=== PATIENT | female | born 1940 | race Caucasian/White ===

== ENCOUNTER 2018-12-30 11:52 | Observation (INO) | payer MEDICARE, BC ==
[~2018-12-30] VITALS: Ht 160 cm; Wt 88.0 kg
--- NOTE | ~2018-12-30 | H ---
[address] [address] HISTORY AND PHYSICAL Name: PRAMOD PERDOMO Room: [address] Pawel M.RAneta#: [id number] Admission: 12/30/18 Attend Phys: Rolando Hernandez MD Discharge: 12/31/18 Date of : 36 Report #: [id number] THIS REPORT FOR: //name// Please refer to the History and Physical performed in the physician's office. By: [id number] Records Staff ROBERT /ERIN
[2018-12-30 13:13] LABS: HEMATOCRIT 37.6 % (37.0-47.0); HEMOGLOBIN 12.6 gm/dL (12.0-15.0); MCH 30.8 pg (26.0-34.0); MCHC 33.5 g/dL (28.0-37.0); MCV 91.9 fL (80.0-100.0); MPV 8.9 fl. (7.2-11.1); RBC 4.09 mil/uL (4.20-5.00); RDW-CV 14.3 % (10.5-14.5); WBC 7.7 thou/uL (4.0-11.0)
[2018-12-30 13:14] VITALS: BP 142/59
[2018-12-30 13:21] LABS: PROTIME 10.6 Seconds (9.20-11.50)
[2018-12-30 13:24] LABS: ALKALINE PHOSPHATASE 68 U/L (46-116); ANION GAP 7 mmol/L (7-16); BUN 9 mg/dL (7-18); CALCIUM 9.3 mg/dL (8.5-10.1); CHLORIDE 105 mmol/L (98-107); CHOLESTEROL 232 mg/dL (<200); CO2 27 mmol/L (21-32); CREATININE 1.1 mg/dL (0.6-1.3); GLUCOSE 122 mg/dL (70-99); HDL CHOLESTEROL 97 mg/dL (>40); LDL CHOLESTEROL 120 mg/dL (<100); SERUM ASSESSMENT Clear; SGOT 24 U/L (15-37); SGPT 33 U/L (30-65); SODIUM 139 mmol/L (136-145); TC:HDL 2.4 Ratio (Not establshd); TOTAL BILIRUBIN 0.4 mg/dL (<0.1-1.0); TOTAL PROTEIN 7.2 g/dL (6.4-8.2); TRIGLYCERIDE 75 mg/dL (<150); VLDL 15 mg/dL (<40)
[2018-12-30] MEDS ORDERED: AMITRIPTYLINE H10 M3 PO (14:07)
[2018-12-30] MEDS ORDERED: XANAX1 MG PO (14:07)
[2018-12-30] MEDS ORDERED: VITAMINC500 PO (14:07)
[2018-12-30] MEDS ORDERED: EXCEDRIN MIGRA1 EAC1 PO (14:08)
[2018-12-30] MEDS ORDERED: IRON325 PO (14:09)
[2018-12-30] MEDS ORDERED: ESTRADIOL 1 MG T1 M1 PO (14:09)
[2018-12-30] MEDS ORDERED: NEPHROCAPS SOFT1 CAP PO (14:09)
[2018-12-30] MEDS ORDERED: LASIX 40 MG TAB40 M2 PO (14:10)
[2018-12-30] MEDS ORDERED: FOLIC ACID1 MG PO (14:10)
[2018-12-30] MEDS ORDERED: NORCO 5-325 TA1 EACH PO (14:10)
[2018-12-30] MEDS ORDERED: MAGNESIUM 300300 MG PO (14:11)
[2018-12-30] MEDS ORDERED: MULTIPLE VITAM1 EAC2 PO (14:11)
[2018-12-30] MEDS ORDERED: SYNTHROID75 MCG PO (14:11)
[2018-12-30] MEDS ORDERED: POTASSIUM20 PO (14:12)
[2018-12-30] MEDS ORDERED: PRILOSEC 20 MG20 MG PO (14:12)
[2018-12-30] MEDS ORDERED: PREDNISONE 5 MG5 MG PO (14:13)
[2018-12-30] MEDS ORDERED: LYRICA 50 MG50 MG PO (14:13)
[2018-12-30] MEDS ORDERED: TRAMADOL 50 MG50 MG PO (14:13)
[2018-12-30] MEDS ORDERED: VALACYCLOVIR1000 MG PO (14:14)
[2018-12-30] MEDS ORDERED: VITAMIN D-32000 UNIT PO (14:16)
[2018-12-30] MEDS ORDERED: VITAMIN E400 UNIT PO (14:16)
[2018-12-30 15:36] VITALS: BP 177/74
[2018-12-30 15:51] VITALS: BP 146/82
--- NOTE | 2018-12-30 17:14 | EKG ---
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
--- NOTE | 2018-12-30 17:14 | EKG ---
[place] [address] ELECTROCARDIOGRAM REPORT Name: LEANNEPRAMOD Reuben Room: [address]R.#: [id number] Admission: 12/30/18 Attend Phys: Rolando Hernandez MD Discharge: Date of : 36 Report #: [id number] THIS REPORT FOR: //name// [facility] Test Date: 2018-12-30 Test Time: 15:13:04 Pat Name: PRAMOD PERDOMO Department: Room: [facility] Gender: F [place] Inspector: [facility] 1940 Requested By: Erine Ragland Order Number: [id number] MD: Rolando Hernandez Measurements Intervals [place] Rate: 72 P: 56 ID: 181 QRS: -23 QRSD: 154 T: 84 QT: 458 QTc: 502 Interpretive Statements Sinus rhythm Left bundle branch block No previous ECG available for comparison Electronically Signed On 12-30-2018 17:14:46 CDT by Rolando Hernandez [email or web address] <ELECTRONICALLY SIGNED> By: Rolando Hernandez MD, [facility] 12/30/18 1714 1513 1513 Rolando Hernandez MD, FACC /EPI
[2018-12-30 18:00] VITALS: BP 103/54
[2018-12-30 20:00] VITALS: BP 124/61
[2018-12-31] VITALS (11 sets, daily range): BP systolic 121–155; BP diastolic 60–71
--- NOTE | 2018-12-31 04:50 | NUR ---
PT ALERT ORIENTED. R GROIN HEMATOMA UNCHGD FROM SHIFT CHG. UP WITH ASSIST OF ONE AND WALKER. INITAL ASSESSMENT PT STATED I CANT SLEEP WITH OUT MY ELAVIL AND XANAX. PT SAID SHE TAKES 2MG AT HOME. HOME MED REC SAID 1 MG HS. PT REQUESTED SHE GETS [address] VANCE NOTIFIED FOR ORDERS. 1 MG XANAX AND ELAVIL 10MG ORDERED. TELEMETRY SHOWS SR.
[2018-12-31 05:25] LABS: HEMATOCRIT 32.6 % (37.0-47.0); HEMOGLOBIN 10.9 gm/dL (12.0-15.0); MCH 30.9 pg (26.0-34.0); MCHC 33.3 g/dL (28.0-37.0); MCV 92.8 fL (80.0-100.0); MPV 9.1 fl. (7.2-11.1); RBC 3.52 mil/uL (4.20-5.00); RDW-CV 14.1 % (10.5-14.5)
[2018-12-31 06:02] LABS: ALBUMIN 3.4 g/dL (3.4-5.0); CALCIUM 8.8 mg/dL (8.5-10.1); POTASSIUM 4.1 mmol/L (3.5-5.1); TOTAL BILIRUBIN 0.4 mg/dL (<0.1-1.0); TOTAL PROTEIN 6.2 g/dL (6.4-8.2)
[2018-12-31 06:05] LABS: TROPONIN-I LEVEL 1.38 ng/mL (<0.06)
--- NOTE | 2018-12-31 11:17 | CARD ---
[address] [address] CARDIAC CATH REPORT Name: PRAMOD PERDOMO Room: [address] M.R.#: [id number] Admission: 12/30/18 Attend Phys: Rolando Hernandez MD Discharge: Date of : 36 Report #: [id number] THIS REPORT FOR: //name// APPROVED REPORT Study performed: 12/30/2018 13:08:53 Patient Details Patient Status: Out-Patient Room #: The patient is a 78 year-old female Event Personnel Rolando Hernandez Glaze Grinder, Jabier Thomson (R) Monitor, Joanie Abrams RTR Scrub, Fara Tony RN Cardiac Nurse Practitioner, Ernie Ragland Sales Ambassador Admission/Lab Medications/Medications given during procedure Aspirin PO 162 mg, Angiomax Drip IV 26.3 ml per hr, Ticagrelor PO 180 mg, Angiomax IV 13 ml Procedure Narrative The patient was brought electively to the Cardiac Catheterization Laboratory and was prepped and draped in a sterile manner. The right femoral was infiltrated with 2% Lidocaine subcutaneous anesthesia. A 6fr Ultimum Sheath sheath was inserted into the right femoral artery. Coronary angiography was performed using coronary diagnostic catheters. The right coronary system was accessed and visualized with a Diagnostic 6Fr JR4 catheter. The left coronary system was accessed and visualized with a Diagnostic 6Fr JL4 catheter. The patient tolerated the procedure well and there were no complications associated with the procedure. Intraoperative Conscious Sedation Sedation start time: 1410 Case end Time: 1500 Fentanyl 25 mcg Versed 3 mg Fluoro Time: 7.7 minutes Dose: DAP 19958 cGycm2 107 mGy Contrast Type and Amount: Visipaque 300 ml Coronary Angiography The patient's coronary anatomy is right [place] [address] CARDIAC CATH REPORT Name: PRAMOD PERDOMO Room: [address]#: [id number] Admission: 12/30/18 Attend Phys: Rolando Hernandez MD Discharge: Date of : 36 Report #: [id number] Left Main Normal. LAD Normal in the proximal portion. There is a 75% narrowing in the midportion. Distally the vessel appears normal. Diagonal 1 Normal. Circumflex Normal. OM1 Normal. OM2 Normal. Right Coronary The ostial right coronary artery was narrowed to approximately 50%. The proximal mid and distal vessel are normal. R PDA Normal. RPLV Normal and small in caliber. Left Ventriculography Left Ventriculography was not performed. Hemodynamics The aortic pressure is 177/65 mmHg with a mean of 113 mmHg. The left ventricular pressure is 156/20 mmHg with a mean of mmHg. The left ventricular end diastolic pressure is 31 mmHg. PCI Technique Lesion Percutaneous coronary intervention was performed on the mid left anterior descending artery segment. The lesion stenosis prior to intervention was 75% with RAYMOND flow. A 6F XB LAD 3.5 Guide Catheter was used to engage the ostium. A BMW 190 Interventional Guidewire was used to cross the lesion. BALLOON DILATION A Balloon catheter Trek RX 2.25 X 12 was inserted and inflated up to 6.00atm for 9seconds. STENT DEPLOYMENT A drug-eluting stent Xience Zaria 2.53S03jv was inserted and inflated up to 8.00atm for 12seconds. Additional Inflation: 10.00atm for 12seconds. Additional Inflation: 10.00atm for 7seconds. Final angiography reveals 0 % stenosis with RAYMOND 3 flow. Conclusion 1. 75% stenosis of the mid left anterior descending coronary artery. 2. Moderately elevated left ventricular end-diastolic pressure. 3. Successful PCI with deployment of a drug eluting stent in the mid LAD with 0% residual narrowing and RAYMOND 3 [place] [address] CARDIAC CATH REPORT Name: PRAMOD PERDOMO Room: [address]#: [id number] Admission: 12/30/18 Attend Phys: Rolando Hernandez MD Discharge: Date of : 36 Report #: [id number] Recommendations 1. Recommend percutaneous coronary intervention to mid left anterior descending coronary artery. 2. Continue aggressive risk factor modification. 3. Continue treatment of her diastolic heart failure. Diagnostic Cath Approved by: Rolando Hernandez MD Date/Time: 12/31/2018 11:16:48 <ELECTRONICALLY SIGNED> By: Ernie Ragland MD, [facility] 12/31/18 1117 1117 1117Ernie Ragland MD, [facility] /INF
[2018-12-31] MEDS ORDERED: BRILINTA90 MG PO (12:47)
--- NOTE | 2018-12-31 13:50 | NUR ---
ASSUMED CARE OF PATIENT THIS AM AT 0730. PATIENT IS ALERT, EXTREMELY ANXIOUS THIS AM. SHE HAD C/O WEAKNESS AND DIZZINESS. DR NOTIFIED. PATIENT ASSESSED AND ASSISTED TO THE BATHROOM WITH GAITBELT AND WALKER. VS ASSESSED AND FOUND TO BE WNL. RIGHT GROIN IS FIRM DARK PURPLE AND TENDER TO TOUCH. PATIENT HAS BEEN S-TACHY ALL AM AND HER HEART RATE HAS JUST BECOME SR IN THE LAST [address] IN TO ROUND X 2 TODAY. DISCHARGE ORDERS INITIATED. PATIENT IS TO GO TO US PRIOR TO DISCHARGE. WILL CONTINUE TO ASSESS PATIENT SAFETY. NO FALLS OR INJURY.
--- NOTE | 2018-12-31 13:54 | NUR ---
Pt discharging to home today post cath. Pt wants HH, faxed referral to [facility] per Pt's request.
[2018-12-31] MEDS ORDERED: LIPITOR 20 MG T20 M1 PO (15:58)
--- NOTE | 2018-12-31 16:50 | EKG ---
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
--- NOTE | 2019-01-06 16:04 | D ---
[address] [address] DISCHARGE SUMMARY Name: PRAMOD PERDOMO Room: [address] M.R.#: [id number] Admission: 12/30/18 Attend Phys: Rolando Hernandez MD Discharge: 12/31/18 Date of : 36 Report #: [id number] THIS REPORT FOR: //name// CC: Gera Hernandez DISCHARGE DIAGNOSES: Unstable angina with abnormal CV functional study, status post percutaneous coronary intervention to the left anterior descending coronary artery. PROCEDURES: Coronary angiography, left heart catheterization and percutaneous coronary intervention to left anterior descending coronary artery. HOSPITAL COURSE: The patient was admitted to the hospital after having an abnormal stress test that suggested anterior wall and apical ischemia. She was found to have significant stenosis involving the mid to distal left anterior descending coronary artery, for which she underwent percutaneous coronary intervention, with placement of a 2.5 x 18 mm drug-eluting stent. The patient did well with the procedure. Left ventricular systolic function is preserved. She had a moderate hematoma after the procedure. There was no continued bleeding by ultrasound evaluation. MEDICATIONS: At the time of discharge include alprazolam 1 mg p.o. at bedtime p.r.n., amitriptyline 10 mg p.o. at bedtime, vitamin C 500 mg daily, Excedrin Migraine caplet 1 tablet q.i.d. p.r.n., Nephrocaps soft gel caps 1 daily, vitamin D3 of 2000 units daily, Estrace 1 mg daily, iron sulfate 325 mg daily, folate 1 mg daily, furosemide 40 mg daily, [place] 5/325 q. 6 hours p.r.n., Synthroid 75 mcg daily, magnesium capsules 300 mg daily, multivitamin 1 tablet daily, omeprazole 20 mg daily, potassium chloride 20 mEq daily, prednisone 5 mg daily, Lyrica 50 mg daily, Brilinta 90 mg b.i.d., tramadol 50 mg q. 6 hours p.r.n., valacyclovir 1000 mg daily, vitamin E 400 units daily. DISPOSITION: The patient is to follow up with nurse practitioner in 2 weeks and myself in 2 months. <ELECTRONICALLY SIGNED> By: Rolando Hernandez MD, FACC 01/06/19 1604 1253 1417Micjoey Hernandez MD, FACC /nt
== END 2018-12-31 17:45 | disposition home or self-care (01) ==
LOC: M.CL 11:52 → M.TBA-CV 14:56 → M.2W 14:56
PROVIDERS: Internal Medicine; ADMIT Internal Medicine Cardiovascular Disease
DX: I20.0 Unstable angina (principal)

== ENCOUNTER → 2019-01-02 | Outpatient (CLI) | payer MEDICARE, BC ==
[~2019-01-02] MED LIST: AMITRIPTYLINE H10 M3 PO; BRILINTA90 MG PO; ESTRADIOL 1 MG T1 M1 PO; EXCEDRIN MIGRA1 EAC1 PO; FOLIC ACID1 MG PO; IRON325 PO; LASIX 40 MG TAB40 M2 PO; LIPITOR 20 MG T20 M1 PO; LYRICA 50 MG50 MG PO; MAGNESIUM 300300 MG PO; MULTIPLE VITAM1 EAC2 PO; NEPHROCAPS SOFT1 CAP PO; NORCO 5-325 TA1 EACH PO; POTASSIUM20 PO; PREDNISONE 5 MG5 MG PO; PRILOSEC 20 MG20 MG PO; SYNTHROID75 MCG PO; TRAMADOL 50 MG50 MG PO; VALACYCLOVIR1000 MG PO; VITAMIN D-32000 UNIT PO; VITAMIN E400 UNIT PO; VITAMINC500 PO; XANAX1 MG PO
== END ==
LOC: M.ULTRA 15:37
DX: I72.9 Aneurysm of unspecified site (principal)

== ENCOUNTER → 2019-01-06 | Outpatient (CLI) | payer MEDICARE, BC | LOC: M.ULTRA 08:30 | DX: M79.81 Nontraumatic hematoma of soft tissue (principal); I72.9 Aneurysm of unspecified site ==

== ENCOUNTER → 2020-11-02 | Outpatient (CLI) | payer MEDICARE, BC ==
[~2020-11-02] MED LIST changes: +LASIX 40 MG TAB40 MG PO; +LISINOPRIL20 MG PO; +PLAQUENIL200 MG PO; +TOPROL XL50 MG PO
--- NOTE | 2020-11-02 10:24 | NUR ---
RE: regadenoson stress test. Note home medication including caffeine. Spoke with RN who states this has been addressed with patient. thank you.
--- NOTE | 2020-11-02 17:23 | CARDNUC ---
[place] [address] CARDIAC NUCLEAR IMAGING REPORT Name: PRAMOD PERDOMO Room: [facility]#: [id number] Admission: 11/02/20 Attend Phys: Rolando Hernandez, Discharge: Date of : 36 Date of Service: 11/02/20 1723 Report #: [id number] THIS REPORT FOR: cc: Gera Hsieh MD, Eric K. MD Liston, Michael J. MD [facility] ~ APPROVED REPORT Imaging Protocol: Stress Tc-99m/Rest Tc-99m 1 day Study performed: 11/02/2020 08:30:00 Indication: Dyspnea Patient Location: Out-Patient Stress Tech: Kathy Talbot Stress Nurse: Tina Melvin RN Ht: 5 ft 2 in Wt: 185 lbs BSA: 1.85 m2 BMI: 33.83 Medical History Medical History: CAD s/p stent, Cardiomyopathy, HTN, Hyperlipidemia, ICD, Valvular heart disease Medications: atorvastatin, lisinopril, metoprolol, lasix, ntg Allergies: doxycycline, fluoxetine, keflex, levofloxacin, iron, sertraline, salicylic acid, cefazolin, duloxetine, macrobid, sulfa Cardiac Risk Factors: Age, FHX of CAD, HTN, Hyperlipidemia Previous Cardiac Procedures: PCI, ICD Exercise History: Sedentary Meds Held (24 hrs): metoprolol Resting Data Rest SPECT myocardial perfusion imaging was performed in supine position 30 minutes following the intravenous injection of 11.3 mCi of Tc-99m Sestamibi. Time of rest injection: 09:00 The images were gated to evaluate regional wall motion and calculate left ventricular ejection fraction. Administration Route: IV Administration Site: Right Arm Pharmacologic Stress Pharmacologic stress test was performed by injecting Regadenoson 0.4 [place] [address] CARDIAC NUCLEAR IMAGING REPORT Name: PRAMOD PERDOMO [id number] Admission: 11/02/20 Attend Phys: Rolando Hernandez, Discharge: Date of : 36 Date of Service: 11/02/20 1723 Report #: [id number] mg IV push over 10-15 seconds immediately followed by the intravenous injection of 31.7 mCi of Tc-99m Sestamibi. Time of stress injection: 10:45 Administration Route: IV Administration Site: Right Arm Heart Rate at time of stress injection: 88 bpm. Gated Stress SPECT was performed 40 minutes after stress injection. The images were gated to evaluate regional wall motion and calculate left ventricular ejection fraction. Stress Test Details Stress Test: Pharmacologic stress testing performed using 0.4 mg of regadenoson per 5 mL given IV over 10 seconds. Reason for pharmacologic stress test: LBBB. HR Max Heart Rate (APMHR): 138 bpm Resting HR: 72 bpm Target HR (85% APMHR): 117 bpm Max HR Achieved: 88 bpm % of APMHR: 63 Recovery HR: 70 bpm BP Resting BP: 151/68 mmHg Max BP: 136/49 mmHg Recovery BP: 104/76 mmHg ECG Resting ECG: Sinus Rhythm, LBBB Stress ECG: Sinus Rhythm, LBBB ST Change: None Arrhythmia: None Recovery ECG: Sinus Rhythm, LBBB Recovery ST Change: None Recovery Arrhythmia: None Clinical Reason for Termination: Completed protocol The patient tolerated Lexiscan infusion without significant cardiac symptoms. Stress ECG Conclusion The baseline twelve-lead EKG shows sinus rhythm with left bundle branch block. EKGs obtained during and post Lexiscan infusion show sinus rhythm with left bundle branch [place] [address] CARDIAC NUCLEAR IMAGING REPORT Name: PRAMOD PERDOMO Room: [facility]#: [id number] Admission: 11/02/20 Attend Phys: Rolando Hernandez, Discharge: Date of : 36 Date of Service: 11/02/20 1723 Report #: [id number] Study: Fair Artifact: Mild Breast artifact Study Data At rest, the left ventricular ejection fraction was 51%.. Post stress, the left ventricular ejection was 31%.. TID = 0.89. Perfusion Perfusion images obtained at rest and post Lexiscan stress show a moderate region of photopenia involving the mid to apical anteroseptal wall with no reversibility. Review of the raw data shows global hypokinesis. Suspect breast attenuation artifact. Wall Motion Severe global hypokinesis noted without obvious focal wall motion abnormality. Nuclear Conclusion ECG Findings: non-diagnostic Clinical Findings: negative for ischemia Nuclear Findings: negative for ischemia Exercise Capacity: not assessed Left Ventricular Function: abnormal Risk Study: high Perfusion study show a fixed defect involving the mid to apical anteroseptal wall suggestive of breast attenuation artifact. Gated images show global severe LV systolic dysfunction. Findings appear most consistent with a nonischemic cardiomyopathy. This is a high risk study based on severe LV systolic dysfunction. <Conclusion> The baseline twelve-lead EKG shows sinus rhythm with left bundle branch block. EKGs obtained during and post Lexiscan infusion show sinus rhythm with left bundle branch block. <ELECTRONICALLY SIGNED> By: Rolando Hernandez MD, FACC 11/02/20 1723 172 172 Rolando Hernandez MD, FACC /INF
== END ==
LOC: M.NUC 10-12 14:44
PROVIDERS: ATTEND Internal Medicine Cardiovascular Disease
DX: I42.9 Cardiomyopathy, unspecified (principal); I50.22 Chronic systolic (congestive) heart failure

== ENCOUNTER → 2020-12-16 | Outpatient (CLI) | payer MEDICARE, BC ==
[2020-12-16 15:24] LABS: HEMATOCRIT 39.4 % (37.0-47.0); HEMOGLOBIN 13.3 gm/dL (12.0-15.0); MCH 30.8 pg (26.0-34.0); MCHC 33.8 g/dL (28.0-37.0); MCV 91.1 fL (80.0-100.0); NUCLEATED RBCS 0 /100WBC; PLATELET COUNT* 294 thou/uL (150-400); RBC 4.32 mil/uL (4.20-5.00); RDW-CV 12.9 % (10.5-14.5)
[2020-12-16 15:42] LABS: ABSOLUTE LYMPHOCYTES 0.4 thou/uL (0.8-5.3); ABSOLUTE MONOCYTES 0.3 thou/uL (0.0-1.2); ABSOLUTE NEUTROPHILS 7.3 thou/uL (1.6-8.1); ATYPICAL LYMPHS 1 %; PLATELET ESTIMATE ADEQUATE
[2020-12-16 15:44] LABS: CALCIUM 9.6 mg/dL (8.5-10.1); POTASSIUM 3.9 mmol/L (3.5-5.1)
== END ==
LOC: M.RAD 14:38
PROVIDERS: ATTEND Nurse Practitioner
DX: I50.22 Chronic systolic (congestive) heart failure (principal)

== ENCOUNTER 2021-01-05 11:41 | Observation (INO) | payer MEDICARE, BC ==
[2021-01-05] VITALS (12 sets, daily range): BP systolic 127–172; BP diastolic 58–80
[~2021-01-05] VITALS: Ht 160 cm; Wt 77.1 kg
--- NOTE | ~2021-01-05 | H ---
[address] [address] HISTORY AND PHYSICAL Name: PRAMOD PERDOMO Room: [address] Pawel M.R.#: [id number] Admission: 01/05/21 Attend Phys: Rolando Hernandez MD Discharge: 01/06/21 Date of : 36 Report #: [id number] THIS REPORT FOR: cc: Gera Hsieh MD, Eric K. MD ~ [facility],Medical Records Staff Please refer to the History and Physical performed in the physician's office. By: [id number] Records Staff [facility] /ERIN
[~2021-01-05 11:41] MED LIST changes: +ASA81BEC PO; +CARVEDILOL12.5 MG PO; +FERROUS GLUCON324 M2 PO; +SYNTHROID125 MC1 PO; +VIIBRYD40 MG PO; +VITAMIN D3 PO
[2021-01-05 12:32] LABS: HEMATOCRIT 41.3 % (37.0-47.0); HEMOGLOBIN 13.8 gm/dL (12.0-15.0); MCH 30.6 pg (26.0-34.0); MCHC 33.4 g/dL (28.0-37.0); MCV 91.7 fL (80.0-100.0); MPV 8.7 fl. (7.2-11.1); RBC 4.5 mil/uL (4.20-5.00); RDW-CV 13.4 % (10.5-14.5); WBC 7.8 thou/uL (4.0-11.0)
[2021-01-05 12:40] LABS: APTT 24.3 Seconds (25.0-31.3); PROTIME 11.1 Seconds (9.20-11.50)
[2021-01-05 12:42] LABS: ALBUMIN 4.3 g/dL (3.4-5.0); ALKALINE PHOSPHATASE 54 U/L (46-116); ANION GAP 10 mmol/L (7-16); BUN 9 mg/dL (7-18); CALCIUM 9.6 mg/dL (8.5-10.1); CHLORIDE 104 mmol/L (98-107); CHOLESTEROL 216 mg/dL (<200); CO2 29 mmol/L (21-32); CREATININE 1.1 mg/dL (0.6-1.3); GLUCOSE 127 mg/dL (70-99); HDL CHOLESTEROL 102 mg/dL (>40); LDL CHOLESTEROL 92 mg/dL (<100); POTASSIUM 3.8 mmol/L (3.5-5.1); SERUM ASSESSMENT Clear; SGOT 19 U/L (15-37); SGPT 26 U/L (30-65); SODIUM 143 mmol/L (136-145); TC:HDL 2.1 Ratio (Not establshd); TOTAL BILIRUBIN 0.4 mg/dL (<0.1-1.0); TOTAL PROTEIN 7.2 g/dL (6.4-8.2); TRIGLYCERIDE 112 mg/dL (<150); VLDL 22 mg/dL (<40)
[2021-01-05 13:40] LABS: BE 1.3 mmol/L (-2 to +3); PCO2 44.7 mmHg (35.0-45.0); pH 7.392 (7.340-7.450)
[2021-01-05 13:40] LABS: BE 0.7 mmol/L (-2 to +3); PCO2 47.4 mmHg (35.0-45.0); pH 7.366 (7.340-7.450)
[2021-01-05 13:43] LABS: BE 1.2 mmol/L (-2 to +3); PCO2 45.4 mmHg (35.0-45.0); pH 7.386 (7.340-7.450)
[2021-01-05 13:43] LABS: BE 0.5 mmol/L (-2 to +3); PCO2 46.2 mmHg (35.0-45.0); pH 7.372 (7.340-7.450)
[2021-01-05 13:46] LABS: PO2 33.7 mmHg (75.0-100.0)
[2021-01-05 13:48] LABS: PO2 36.3 mmHg (75.0-100.0)
[2021-01-05 13:49] LABS: PO2 35.1 mmHg (75.0-100.0)
--- NOTE | 2021-01-05 15:12 | EKG ---
[place] [address] ELECTROCARDIOGRAM REPORT Name: PRAMOD PERDOMO Room: [address]#: [id number] Admission: 01/05/21 Attend Phys: Rolando Hernandez, Discharge: Date of : 36 Date of Service: 01/05/21 1247 Report #: [id number] THIS REPORT FOR: //name// 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 : 1940 Requested By: Rolando Hernandez Order Number: [id number] MD: Rolando Hernandez Measurements Intervals [place] Rate: 70 P: 38 VA: 188 QRS: -24 QRSD: 154 T: 120 QT: 447 QTc: 483 Interpretive Statements Sinus rhythm Atrial premature complex Left bundle branch block Compared to ECG 12/31/2018 08:16:36 Atrial premature complex(es) now present Sinus tachycardia no longer present Electronically Signed On 01-05-2021 15:12:45 CDT by Rolando Hernandez [email or web address] <ELECTRONICALLY SIGNED> By: Rolando Hernandez MD, FAC 01/05/21 1512 1247 1247 Rolando Hernandez MD, [facility] /EPI
--- NOTE | 2021-01-05 16:01 | CARD ---
[address] [address] CARDIAC CATH REPORT Name: PRAMOD PERDOMO Room: [address] Pawel M.R.#: [id number] Admission: 01/05/21 Attend Phys: Rolando Hernandez MD Discharge: Date of : 36 Report #: [id number] THIS REPORT FOR: cc: Gera Hsieh MD, Eric K. MD ~ Ernie Ragland MD [facility] ADDENDUM APPROVED REPORT Study performed: 01/05/2021 12:57:02 Patient Details Patient Status: Out-Patient Room #: The patient is a 80 year-old female Event Personnel Leatha Dumont RTR Scrub, Pete Reynolds RTR Monitor, Rolando Hernandez Painter Drum, Leora Kruger RN senior web engineer Performed Right and Left Heart Cath w/or w/o Coronarie [id number] RLHC Atherectomy w/wo Plasty Sgl LAD [id number] ATHSINGLE Hemostasis w/ Mynx Hemostasis w/ Mynx Indication Chest pain Previous Procedures/Diagnoses Previous PCI Admission/Lab Medications/Medications given during procedure Solumedrol IV 125 mg, Benadryl IV 25 mg, Fentanyl IV 25 mcg, Midazolam (Versed) IV 1 mg, Angiomax IV 11 ml, Angiomax IV 27 ml per hr, Nitroglycerin IC 150 mcg, Effient PO 60 mg, Aspirin PO 325 mg Procedure Narrative The patient was brought electively to the Cardiac Catheterization Laboratory and was prepped and draped in a sterile manner. The RFG was infiltrated with 2% Lidocaine subcutaneous anesthesia. IV conscious sedation was used throughout procedure with appropriate monitoring and was performed in the presence of a registered nurse who was an independent trained observer other than the physician performing the procedure. A Right [place] [address] CARDIAC CATH REPORT Name: PRAMOD PERDOMO Room: [address]#: [id number] Admission: 01/05/21 Attend Phys: Rolando Hernandez MD Discharge: Date of : 36 Report #: [id number] with a 7 Fr. [place]-Thomas catheter and pressure were recorded. Cardiac outputs were obtained by the Thermal Dilution method. A [place] 6 FR sheath was inserted into the right femoral artery. Coronary angiography was performed using coronary diagnostic catheters. The right coronary system was accessed and visualized with a Diagnostic JR4 6Fr catheter. The left coronary system was accessed and visualized with a Diagnostic JL4 6Fr catheter. The left ventricle was accessed and visualized with a Diagnostic Pigtail 6Fr catheter. Left ventricular/Aortic Valve gradient assessed via catheter pullback. Left ventriculogram was performed in ARROYO projection. Pre-demployment femoral angiogram was performed . Closure device was deployed with a 6 Fr Mynx. The patient tolerated the procedure well and there were no complications associated with the procedure. There was no hematoma. Intraoperative Conscious Sedation Sedation start time: 1321 Case end Time: 1414 Fentanyl 25 mcg Versed 1 mg Fluoro Time: 11.6 minutes Dose: DAP 484953 cGycm2 1992.23 mGy Contrast Type and Amount: Omnipaque 320 ml Coronary Angiography The patient's coronary anatomy is right dominant. Diagnostic Cath Left Main Left main coronary artery is normal and bifurcates into a left anterior descending and circumflex coronary arteries. LAD The left anterior descending coronary artery has 80% in-stent stenosis in the mid vessel. The remainder the vessel is free of significant disease. Diagonal 1 A first diagonal branch is free of significant disease. Diagonal 2 A second diagonal branch is free of significant disease. Circumflex The circumflex coronary artery appears normal in its proximal mid and distal portion. OM1 A first obtuse marginal branch appears normal. OM2 A second obtuse marginal branch appears normal. Right Coronary The right coronary artery has 50% ostial narrowing. The remainder the vessel is free of significant disease. R PDA The right PDA appears normal. RPLV The right posterior lateral [place] [address] CARDIAC CATH REPORT Name: PRAMOD PERDOMO Room: [address] Pawel M.R.#: [id number] Admission: 01/05/21 Attend Phys: Rolando Hernandez MD Discharge: Date of : 36 Report #: [id number] Left Ventriculography The left ventricle is normal in size with Mildly decreased contractility. The left ventricular ejection fraction is estimated to be 40-45%. There is mild global hypokinesis without obvious focal wall motion abnormality. Hemodynamics The right atrial mean pressure is 5 mmHg. The right ventricular pressure is 24/0 mmHg. The pulmonary artery pressure is 19/1 mmHg with a mean of 9 mmHg. The mean pulmonary capillary wedge pressure is 5 mmHg. The aortic pressure is 142/53 mmHg with a mean of 50 mmHg. The left ventricular pressure is 172/10 mmHg with a mean of mmHg. The left ventricular end diastolic pressure is 24 mmHg. PaO2 saturation is 69.00 %. Arterial saturation is 91.80 %. The cardiac output using the Josue method is 3.31 L/min. The cardiac index using the Josue method is 1.83 L/min/m2. The cardiac output using thermo method is 4.17 L/min. The cardiac index using thermo method is 2.31 L/min/m2. PCI Technique Lesion Anticoagulation was achieved with Angiomax. Percutaneous coronary intervention was performed on the mid left anterior descending artery segment. The lesion stenosis prior to intervention was 80% with RAYMOND 3 flow. A 6F XB LAD 3.5 Guide Catheter was used to engage the Left ostium. BALLOON DILATION A Balloon catheter NC Trek RX 2.0 X 12 was inserted and inflated up to 12.00atm for 10seconds. Additional Inflation: 14.00atm for 13seconds. Additional Inflation: 13.00atm for 9seconds. A Cutting Balloon Catheter AngioSculpt 2.0X10mm was inserted and inflated up to 12.00 bre for 15 seconds.Additional Inflation: 12.00 bre for 10 seconds. Additional Inflation: 10.00 bre for 10 seconds. STENT DEPLOYMENT A drug-eluting stent [place] RX Stent 2.0X18mm was inserted and inflated up to 12.00atm for 14seconds. Additional Inflation: 15.00atm for 10seconds. Additional Inflation: 15.00atm for 12seconds. Final angiography reveals 0 % stenosis with RAYMOND 3 flow. Conclusion 1. Moderate 80% in-stent restenosis [place] [address] CARDIAC CATH REPORT Name: PRAMOD PERDOMO Room: [address]#: [id number] Admission: 01/05/21 Attend Phys: Rolando Hernandez MD Discharge: Date of : 36 Report #: [id number] 2. Moderately elevated left ventricular end-diastolic pressure. 3. Mildly decreased left ventricular systolic function with global hypokinesis. 4. Successful PCI with angioplasty, atherotomy/atherectomy and deployment of drug-eluting stent in the mid LAD with 0% residual narrowing and RAYMOND-3 flow to the distal vessel Recommendations 1. Percutaneous coronary intervention to the mid left anterior descending coronary artery and the location of the in-stent restenosis. 2. Aggressive risk factor modification. Medications Administered Aspirin (any) Ticagrelor Diagnostic Cath Approved by: Rolando Hernandez MD Date/Time: 01/05/2021 15:59:26 <ELECTRONICALLY SIGNED> By: Ernie Ragland MD, [facility] 01/05/211599 99 99Ernie Ragland MD, FAC /INF
--- NOTE | 2021-01-05 16:04 | EKG ---
[place] [address] ELECTROCARDIOGRAM REPORT Name: PRAMOD PERDOMO Room: [address]#: [id number] Admission: 01/05/21 Attend Phys: Rolando Hernandez, Discharge: Date of : 36 Date of Service: 01/05/21 1534 Report #: [id number] THIS REPORT FOR: //name// [facility] Test Date: 2021-01-05 Test Time: 15:34:33 Pat Name: PRAMOD PERDOMO Department: Room: 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1940 Requested By: Rolando Hernandez Order Number: [id number] MD: Rolando Hernandez Measurements Intervals [place] Rate: 68 P: 63 MA: 188 QRS: -14 QRSD: 157 T: 102 QT: 484 QTc: 515 Interpretive Statements Sinus rhythm Left bundle branch block Compared to ECG 01/05/2021 12:47:39 Atrial premature complex(es) no longer present Electronically Signed On 01-05-2021 16:04:01 CDT by Rolando Hernandez [email or web address] <ELECTRONICALLY SIGNED> By: Rolando Hernandez MD, FACC 01/05/21 1604 1534 1534 Rolando Hernandez MD, [facility] /EPI
--- NOTE | 2021-01-05 19:20 | NUR ---
PT IS ALERT AND ORIENTED RIGHT GROIN SITE C/D/I RIGHT FOOT IS BROKEN HAS BOOT CAN GET UP AT 1999 C/O PAIN TO RIGHT FOOT SR ON THE MONITOR BP RUNS HIGH TOOK HER MEDS THIS AM NO FLUIDS ORDERED RAC IV ATE WELL CALL LIGHT IN REACH
[2021-01-06] VITALS: BP 118/63
[2021-01-06 04:27] LABS: HEMATOCRIT 35.1 % (37.0-47.0); MCH 31.2 pg (26.0-34.0); MCHC 34.2 g/dL (28.0-37.0); MCV 91.3 fL (80.0-100.0); MPV 8.7 fl. (7.2-11.1); RBC 3.84 mil/uL (4.20-5.00); WBC 6.8 thou/uL (4.0-11.0)
[2021-01-06 04:46] LABS: ALBUMIN 3.5 g/dL (3.4-5.0); CALCIUM 8.6 mg/dL (8.5-10.1); CREATININE 0.8 mg/dL (0.6-1.3); POTASSIUM 3.7 mmol/L (3.5-5.1); TOTAL BILIRUBIN 0.4 mg/dL (<0.1-1.0); TOTAL PROTEIN 6.2 g/dL (6.4-8.2)
[2021-01-06 04:50] VITALS: BP 135/64
[2021-01-06] MEDS ORDERED: EFFIENT10 MG PO (09:17)
[2021-01-06 10:34] VITALS: BP 137/74
[2021-01-06 10:56] VITALS: BP 137/74
--- NOTE | 2021-01-06 10:56 | EKG ---
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1940 Requested By: Rolando Hernandez Order Number: [id number] MD: Ernie Ragland Measurements Intervals [place] Rate: 70 P: 52 [place]: 194 QRS: -11 QRSD: 159 T: 99 QT: 497 QTc: 537 Interpretive Statements Sinus rhythm Left bundle branch block Compared to ECG 01/05/2021 15:34:33 No significant changes Electronically Signed On 01-06-2021 10:55:56 CDT by Ernie Ragland [email or web address] <ELECTRONICALLY SIGNED> By: Ernie Ragland MD, [facility] 01/06/21 1055 08 0800 Ernie Ragland MD, [facility] /EPI
--- NOTE | 2021-01-08 10:38 | D ---
[address] [address] DISCHARGE SUMMARY Name: PRAMOD PERDOMO Room: [address] Pawel M.R.#: [id number] Admission: 01/05/21 Attend Phys: Rolando Hernandez MD Discharge: 01/06/21 Date of : 36 Report #: [id number] THIS REPORT FOR: cc: Gera Hsieh MD, Eric K. MD ~ Rolando Hernandez MD [facility] DATE OF SERVICE: 01/06/2021 DISCHARGE DIAGNOSES: 1. Unstable angina. 2. Coronary artery disease. 3. Arrhythmogenic right ventricular dysplasia. 4. Essential hypertension. 5. Presence of implantable cardioverter defibrillator. 6. Chronic combined heart failure. PROCEDURES DURING THE HOSPITALIZATION: 1. Coronary angiography. 2. Left heart catheterization. 3. Percutaneous coronary intervention with stenting to an area of in-stent restenosis in the left anterior descending coronary artery. HOSPITAL COURSE: The patient was brought to the cardiac catheterization lab on 01/05/2021, with increased symptoms of dyspnea and abnormal stress testing. Cardiac catheterization revealed moderate 70-80% in-stent restenosis in a stent in the mid to distal left anterior descending coronary artery. The patient underwent repeat intervention with restenting of this region with excellent result. There were no complications related to the procedure. Additionally, the patient underwent right heart catheterization to evaluate pulmonary pressures. This showed her right heart pressures to be normal. The patient was observed overnight and discharged uneventfully. DISCHARGE MEDICATIONS: Aspirin 81 mg daily, Effient 10 mg daily, Tylenol p.r.n., Lyrica 50 mg t.i.d., carvedilol 12.5 mg b.i.d., lisinopril 20 mg b.i.d., hydroxychloroquine 200 mg b.i.d., Elavil 10 mg at bedtime, estradiol 1 mg daily, levothyroxine 0.125 mg daily, furosemide 40 mg daily, atorvastatin 20 mg daily, prednisone 5 mg daily, vitamin C 500 mg daily, tramadol 50 mg q. 6 hours p.r.n., alprazolam 1 mg at bedtime p.r.n. DISPOSITION: The patient is to follow up with Cardiology in 4 weeks. <ELECTRONICALLY SIGNED> By: Rolando Hernandez MD, FACC 01/08/21 1038 1056 [id number], FACC /nt
== END 2021-01-06 12:34 | disposition home or self-care (01) ==
LOC: M.CL 11:41 → M.TBA-CV 14:32 → M.2W 15:23
PROVIDERS: ADMIT Internal Medicine Cardiovascular Disease; ATTEND Internal Medicine Cardiovascular Disease
DX: I25.110 Atherosclerotic heart disease of native coronary artery with unstable angina pectoris (principal); I42.8 Other cardiomyopathies; Z20.822 Contact with and (suspected) exposure to COVID-19; I11.0 Hypertensive heart disease with heart failure; I50.42 Chronic combined systolic (congestive) and diastolic (congestive) heart failure; Z95.810 Presence of automatic (implantable) cardiac defibrillator; Z88.2 Allergy status to sulfonamides; Z88.8 Allergy status to other drugs, medicaments and biological substances